=== PATIENT | female | born 1975 | race Caucasian/White ===

== ENCOUNTER 2021-05-06 19:23 | Emergency (ER) | payer OTHER ==
[~2021-05-06] VITALS: Ht 154.9 cm; Wt 52.2 kg
[~2021-05-06 19:23] MED LIST: ATARAX,VISTARIL50 MG PO; BACTRIM DS 8001 TA1 PO; CARBIDOPA/LEVOD1 TA1 PO; ESTRACE1 M1 PO; ESTRACE2 MG PO; HYDROCODONE BIT1 T11 PO; K-Dur 20MEQ20 MEQ PO; MAPAP325 MG PO; METHADONE10 MG PO; MOTRIN800 MG PO; PERCOCET 325 MG1 TA2 PO; VISTARIL50 MG PO; XANAX1 MG PO; ZOFRAN ODT4 MG SL; ZOFRAN4 MG PO
== END 2021-05-06 20:44 | disposition left against medical advice (07) ==
LOC: ED 19:23
DX: R21 Rash and other nonspecific skin eruption (principal); F41.9 Anxiety disorder, unspecified; Z53.21 Procedure and treatment not carried out due to patient leaving prior to being seen by health care provider

== ENCOUNTER 2024-11-01 20:47 | Emergency (ER) | payer OTHER ==
[~2024-11-01] VITALS: Wt 53.5 kg
[2024-11-01] MEDS ORDERED: Sulfamethoxazole/Trimethopri 1 TAB TAB PO ONE (21:10)
[2024-11-01] MEDS ORDERED: Bacitracin Zinc 14 GM TUBE T ONE (21:10)
[2024-11-01] MEDS ORDERED: SEPTDS PO (21:11)
== END 2024-11-01 21:14 | disposition home or self-care (01) ==
LOC: ED 20:47
DX: L98.9 Disorder of the skin and subcutaneous tissue, unspecified (principal); F17.200 Nicotine dependence, unspecified, uncomplicated; Z90.710 Acquired absence of both cervix and uterus; Z98.890 Other specified postprocedural states

== ENCOUNTER 2024-11-10 11:51 | Emergency (ER) | payer OTHER ==
[~2024-11-10] VITALS: Ht 154.9 cm; Wt 53.5 kg
[~2024-11-10 11:51] MED LIST changes: +SEPTDS PO
[2024-11-10] MEDS ORDERED: ELIMITE 5%60 GM T (12:21)
== END 2024-11-10 12:22 | disposition home or self-care (01) ==
LOC: ED 11:51
DX: S40.812A Abrasion of left upper arm, initial encounter (principal); S40.811A Abrasion of right upper arm, initial encounter; S80.812A Abrasion, left lower leg, initial encounter; S80.811A Abrasion, right lower leg, initial encounter; S20.419A Abrasion of unspecified back wall of thorax, initial encounter; S00.81XA Abrasion of other part of head, initial encounter; F41.9 Anxiety disorder, unspecified; F32.A Depression, unspecified; L03.90 Cellulitis, unspecified; F17.200 Nicotine dependence, unspecified, uncomplicated; Z90.710 Acquired absence of both cervix and uterus; Z98.890 Other specified postprocedural states; X58.XXXA Exposure to other specified factors, initial encounter; Y93.9 Activity, unspecified; Y92.009 Unspecified place in unspecified non-institutional (private) residence as the place of occurrence of the external cause; Y99.8 Other external cause status